=== PATIENT | female | born 1995 ===

== ENCOUNTER → 2016-10-22 | Outpatient (CLI) | payer OTHER ==
[~2016-10-22] VITALS: Ht 162.6 cm; Wt 78.0 kg
[2016-10-22 18:41] VITALS: BP 126/74
[2016-10-22 19:48] VITALS: BP 120/58
== END | disposition home or self-care (01) ==
LOC: M LDO 18:29
PROVIDERS: ATTEND Obstetrics & Gynecology
DX: O47.1 False labor at or after 37 completed weeks of gestation (principal); Z3A.35 35 weeks gestation of pregnancy

== ENCOUNTER → 2016-10-30 | Outpatient (REF) | payer OTHER | LOC: M LAB REF 12:23 | PROVIDERS: ATTEND Obstetrics & Gynecology | DX: Z34.83 Encounter for supervision of other normal pregnancy, third trimester (principal); Z36 Encounter for antenatal screening of mother ==

== ENCOUNTER → 2016-11-20 | Outpatient (REF) | payer OTHER | LOC: M LAB REF 16:30 | PROVIDERS: ATTEND Advanced Practice Midwife | DX: Z11.3 Encounter for screening for infections with a predominantly sexual mode of transmission (principal) ==

== ENCOUNTER 2016-11-27 18:29 | Inpatient (IN) | payer OTHER ==
[~2016-11-27] VITALS: Ht 162.6 cm; Wt 87.0 kg
[2016-11-27] VITALS (19 sets, daily range): BP systolic 115–153; BP diastolic 63–95
[2016-11-27] MEDS ORDERED: LACTATED RINGER'S 1000 ML IV STA (18:53)
[2016-11-27] MEDS ORDERED: LR 1,000 ML IV SCH (18:53)
[2016-11-27] MEDS ORDERED: FENTANYL 2MCG/ML ROPIVACAINE 0.2% IN 0.9% NACL 200ML IVBAG As Ordered ONE (19:44)
[2016-11-27 19:45] LABS: MEAN CORPUSCULAR HEMOGLOBIN 28.2 pg (27.0-33.0); MEAN CORPUSCULAR HGB CONC 32.3 g/dl (32.0-36.5); MEAN CORPUSCULAR VOLUME 87.5 fl (80.0-96.0); RED CELL DISTRIBUTION WIDTH 14.8 % (11.5-14.5); WHITE BLOOD COUNT 12.4 K/mm3 (4.0-10.0)
[2016-11-27] MEDS ORDERED: diphenhydrAMINE INJ 50MG/ML VIAL (J1200) IV PRN (21:00)
[2016-11-27] MEDS ORDERED: LACTATED RINGER'S 1000 ML IV PRN (21:00)
[2016-11-27] MEDS ORDERED: EPIDURAL/PCA KEYS XX PRN (21:00)
[2016-11-27] MEDS ORDERED: EPIDURAL COMMENT XX SCH (21:00)
[2016-11-27] MEDS ORDERED: FENTANYL/ROPIVACAINE/NACL BAG 200 ML EPIDURAL SCH (21:00)
[2016-11-27] MEDS ORDERED: REFRIGERATOR IV KEYS XX PRN (21:00)
[2016-11-27] MEDS ORDERED: NALOXONE INJ 0.4 MG/1 ML VIAL (J2310) IV PRN (21:00)
[2016-11-27] MEDS ORDERED: ONDANSETRON 4MG/2ML VIAL (J2405) IV PRN (21:00)
[2016-11-27] MEDS ORDERED: ePHEDrine SULFATE 25 MG/5 ML(5MG/ML) SYRINGE IV PRN (21:00)
[2016-11-27] MEDS ORDERED: OXYTOCIN 30 UNITS IN 0.9% NaCl 500ML IV BAG (J2590) As Ordered ONE (21:11)
--- NOTE | 2016-11-27 21:20 | HPE ---
DATE OF ADMISSION: 11/27/2016 A 21-year-old female 2, para 1-0-0-1 with an EDC of 12/02/2016, EGA 39-2/7 weeks gestation who presented to labor and delivery with complaints of contractions every 3 minutes. Upon evaluation in labor and delivery she was found to be in active labor. At this point a decision was made for admission. Her record reviewed. Blood type is A positive. Rubella immune, hepatitis negative, HIV negative, GC chlamydia negative, 1-hour sugar testing was within normal limits. Her GBS is negative. PAST MEDICAL HISTORY: Denies. PAST SURGICAL HISTORY: Denies. SOCIAL HISTORY: Denies any alcohol, drug or cigarette smoking. The patient did have positive urine toxicology in April of last year, the use of drugs and/ or vitamins. ALLERGIES: No known drug allergies. EXAMINATION: Normal-appearing female in no acute distress. Abdomen: Soft, nontender, nondistended. Gravid. Extremities: No clubbing, cyanosis or edema. Vaginal exam is 5-6 cm, 80%, fetus at -3 station with bulging membrane. Tracing reviewed, category one tracing with contractions every 2-3 minutes. ASSESSMENT: Intrauterine at 39-3/7 weeks gestation in active labor. PLAN: Admit to labor and delivery. Routine labs sent. Pain management discussed. The patient opted for an epidural. Will continue to monitor. Anticipate delivery. PETERD
[2016-11-27] MEDS ORDERED: OXYTOCIN DRIP 30 UNITS in APPROPRIATE DILUENT 1 EA IV SCH (22:09)
[2016-11-27] MEDS ORDERED: DOCUSATE SODIUM 100 MG CAP PO PRN (22:15)
[2016-11-27] MEDS ORDERED: ANUSOL HC CREAM 30GM TOP PRN (22:15)
[2016-11-27] MEDS ORDERED: DIBUCAINE 1% OINTMENT 30GM TOP PRN (22:15)
[2016-11-27] MEDS ORDERED: MEASLES,MUMPS,RUBELLA VACCINE INJ (MMR-II) (90707) SC SCH (22:15)
[2016-11-27] MEDS ORDERED: METHYLERGONOVINE MALEATE 0.2 MG TAB PO PRN (22:15)
[2016-11-27] MEDS ORDERED: ACETAMINOPHEN 500 MG TAB PO PRN (22:15)
[2016-11-27] MEDS ORDERED: RHOGAM 300 MCG (1500 IU) INJ (J2790) IM SCH (22:15)
[2016-11-27 22:42] LABS: CORD GAS ABE V -3.3; CORD GAS HCO3 V 23.4 MEQ/L; CORD GAS O2 SAT V 53.3 %; CORD GAS PCO2 V 48.2 mmHg; CORD GAS PH V 7.304 UNITS; CORD GAS PO2 V 25.2 mmHg; CORD GAS SBC V 20.6 MEQ/L; CORD GAS TCO2 V 24.9 MEQ/L
[2016-11-27 22:44] LABS: CORD GAS ABE A -2.9; CORD GAS HCO3 A 24.9 MEQ/L; CORD GAS O2 SAT A 27.3 %; CORD GAS PCO2 A 55.7 mmHg; CORD GAS PH A 7.268 UNITS; CORD GAS PO2 A 16.1 mmHg; CORD GAS SBC A 20.4 MEQ/L; CORD GAS TCO2 A 26.6 MEQ/L
[2016-11-28 00:14] VITALS: BP 126/71
--- NOTE | 2016-11-28 01:07 | DN ---
DATE: 11/27/2016 Bri is a 21-year-old female, 2, para 1-0-0-1, who was admitted at 39-3/7 weeks gestation in active labor. She progressed to fully dilated after artificial rupture of membrane and epidural. She then pushed and delivered a live male in right occiput anterior position over an intact perineum, scores 9 and 9, weight 7 pounds 4 ounces. Placenta delivered spontaneously intact. Three-vessel cord. Perineum, vagina, and cervix inspected. No laceration noted. Estimated blood loss 250 mL. Both mother and baby in stable condition.
[2016-11-28] MEDS: IBUPROFEN 800 MG TAB PO PRN (04:15)
[2016-11-28 05:43] VITALS: BP 126/61
[2016-11-28] MEDS: PRENATAL VITAMIN TAB PO SCH (08:02)
[2016-11-28] MEDS ORDERED: INFLUENZA QUADRIVALENT PF VACCINE 0.5ML SYRINGE/VIAL (90686) IM SCH (09:00)
[2016-11-28 18:14] VITALS: BP 125/70
[2016-11-29 05:38] VITALS: BP 141/77
[2016-11-29] MEDS: IBUPROFEN 800 MG TAB PO PRN (05:38)
[2016-11-29] MEDS ORDERED: PRENTAB9 PO (08:42)
[2016-11-29] MEDS ORDERED: ACET50TA PO (08:42)
[2016-11-29] MEDS ORDERED: IBUP-1114 PO (08:42)
[2016-11-29] MEDS: PRENATAL VITAMIN TAB PO SCH ×2 (08:54→10:54)
== END 2016-11-29 10:50 | disposition home or self-care (01) | DRG 775 ==
LOC: M LDO 18:29 → M LDI 18:49 → M OBS 11-28 00:03
PROVIDERS: ADMIT Obstetrics & Gynecology; ATTEND Obstetrics & Gynecology
PROC: 10E0XZZ Delivery of Products of Conception, External Approach (ICD-10-PCS; principal; 2016-11-27)
DX: O80 Encounter for full-term uncomplicated delivery (principal); Z37.0 Single live birth; Z3A.39 39 weeks gestation of pregnancy